=== PATIENT | female | born 1935 | race Caucasian/White ===

== ENCOUNTER 2016-09-01 07:49 | Day surgery (SDC) | payer BC ==
--- NOTE | ~2016-09-01 | EGD ---
EGD REPORT [facility] [address] [place]. [id number] NAME: HAFSA HALEY : 33 STATUS : REG [facility]#: [id number] AGE: 80 ADM/REG DATE : 09/01/16 MR#: [id number] REPORT SERV DATE: 09/01/16 DICTATED BY: EMMETT LOPEZ DATE: 09/01/16 REPORT STATUS : Draft TRANSCRIBED BY: [employer] DATE: 09/01/16 [facility] Patient Name: Hafsa Haley Date of : 1935 Attending MD: EMMETT LOPEZ MD Procedure Date No Time: 09/01/2016 Procedure: Colonoscopy Indications: Generalized abdominal pain, Constipation Referring MD: DEANDRA GUDINO Medicines: Propofol per Anesthesia Complications: No immediate complications. Procedure: Pre-Anesthesia Assessment: - ASA Grade Assessment: III - A patient with severe systemic disease. After I obtained informed consent, the scope was passed under direct vision. Throughout the procedure, the patient's blood pressure, pulse, and oxygen saturations were monitored continuously. The PCF [id number] was introduced through the anus and advanced to the cecum, identified by appendiceal orifice and ileocecal valve. The ileocecal valve was photographed. The entire colon was examined. The colonoscopy was performed without difficulty. The patient tolerated the procedure well. The quality of the bowel preparation was good. Findings: The perianal and digital rectal examinations were normal. Internal hemorrhoids were found during retroflexion and were Grade I (internal hemorrhoids that do not prolapse). Multiple medium-mouthed diverticula were found in the recto-sigmoid colon, in the sigmoid colon and in the ascending colon. The rest of the colon was normal. Impression: - Internal hemorrhoids. - Diverticulosis in the recto-sigmoid colon, in the sigmoid colon and in the ascending colon. Recommendation: - Patient has a contact number available for emergencies. The signs and symptoms of potential delayed complications were discussed with the patient. Return to normal activities tomorrow. Written discharge instructions were provided to the patient. - Regular diet. - Patient has a contact number available for emergencies. The signs and symptoms of potential delayed EGD REPORT [address] [address] NAME: HAFSA HALEY : [birth year] STATUS : REG [facility] [place] PAT#: [id number] AGE: 80 ADM/REG DATE : 09/01/16 MR#: [id number] REPORT SERV DATE: 09/01/16 DICTATED BY: EMMETT LOPEZ DATE: 09/01/16 REPORT STATUS : Draft TRANSCRIBED BY: [facility] DATE: 09/01/16 complications were discussed with the patient. Return to normal activities tomorrow. Written discharge instructions were provided to the patient. - Continue present medications. Procedure Code(s): --- Professional --- 72397, Colonoscopy, flexible, proximal to splenic flexure; diagnostic, with or without collection of specimen(s) by brushing or washing, with or without colon decompression (separate procedure) Diagnosis Code(s): --- Professional --- K64.0, First degree hemorrhoids K57.30, Diverticulosis of large intestine without perforation or abscess without bleeding R10.84, Generalized abdominal pain K59.00, Constipation, unspecified CPT copyright 2013 [employer]. All rights reserved. The codes documented in this report are preliminary and upon steam conditioner operator review may be revised to meet current compliance requirements. Emmett Lopez MD EMMETT LOPEZ MD 09/01/2016 8:43 AM This report has been signed electronically. Number of Addenda: 0 Note Initiated On: 09/01/2016 8:17 AM Scope Withdrawal Time 0 hours 4 minutes 15 seconds [address] [place] [id number]
[~2016-09-01 07:49] MED LIST: ANTIBIOTIC RX; ASAB PO; BALANCED B PO; BLACK COHASH; CALTRA600D; COREG12 PO; COREG3 PO; KLONO5; KLOR-CON M2020 MEQ PO; L20 PO; MEPHYTON 5 MG TA5 MG PO; PCET PO; PRAVAC PO; VIACTIV; VIT D 3; VITAMIN D31000 UNIT PO; VITAMIN K; ZESTRIL10 MG PO; [UNRECOGNIZED DRUG - MIXTURE] PO
== END 2016-09-01 23:59 | disposition home health service (06) ==
LOC: DMU 07:49
PROVIDERS: Internal Medicine Gastroenterology
PROC: 0DJD8ZZ Inspection of Lower Intestinal Tract, Via Natural or Artificial Opening Endoscopic (ICD-10-PCS; principal; 2016-09-01 09:30)
DX: K64.0 First degree hemorrhoids (principal); K57.30 Diverticulosis of large intestine without perforation or abscess without bleeding; F41.9 Anxiety disorder, unspecified; I25.10 Atherosclerotic heart disease of native coronary artery without angina pectoris; M19.90 Unspecified osteoarthritis, unspecified site; I10 Essential (primary) hypertension; Z79.82 Long term (current) use of aspirin; Z79.899 Other long term (current) drug therapy; Z88.2 Allergy status to sulfonamides; Z90.49 Acquired absence of other specified parts of digestive tract; Z90.710 Acquired absence of both cervix and uterus; Z98.41 Cataract extraction status, right eye; Z98.42 Cataract extraction status, left eye; Z96.1 Presence of intraocular lens; Z98.890 Other specified postprocedural states